=== PATIENT | female | born 1955 | race Caucasian/White ===

== ENCOUNTER 2019-07-09 14:08 | Outpatient (CLI) | payer MEDICARE, OTHER ==
[2019-07-09 14:38] LABS: eGFR (Non-African) > 60
[2019-07-09 14:54] LABS: HDL 145 mg/dL (>40)
== END 2019-07-09 14:13 ==
LOC: LABRHC 14:08
PROVIDERS: ATTEND Family Medicine
DX: Z13.6 Encounter for screening for cardiovascular disorders (principal)
CPT/HCPCS: 80053; 80061